=== PATIENT | female | born 1970 | race Caucasian/White ===

== ENCOUNTER → 2023-04-30 | Outpatient (CLI) | payer BC, SELFPAY ==
--- NOTE | 2023-04-30 14:51 | RAD_ITS ---
STUDY: X-RAY CHEST REASON FOR EXAM: Female, 52 years old. COUGH TECHNIQUE: PA and lateral views of the chest. COMPARISON: None. FINDINGS: There is metallic density at the right mid chest. The lungs are clear and expanded. There is no demonstrated pleural abnormality. Normal size heart. Normal mediastinum and andrew. Normal visualized pulmonary arteries. Normal visualized aortic arch and descending thoracic aorta. Normal visualized thoracic spine. Normal visualized ribs, clavicles, and shoulders. There is no demonstrated abnormality of the visualized soft tissue structures of the upper abdomen. RAD/Chest PA and Lateral IMPRESSION: Normal x-ray examination of the chest. Electronically Signed: Moi Brothers MD at 15:20 EST ,
--- OUTSIDE RECORDS SUMMARY | 2023-04-30 15:05 | XMS RPT_ITS | CCD ---
Author Name Unknown Address [address] [place] [address] Organization [facility] Care Team Providers Care Warehouse Guard Name Role Phone Maryellen De Leon MD Primary Care Provider [phone] MARYELLEN DE LEON Primary Care Unavailable MARYELLEN DE LEON Primary Care Unavailable CARITO REDDY Referring Unavailable MARYELLEN DE LEON Primary Care Unavailable CARITO REDDY Attending Unavailable MARYELLEN DE LEON Primary Care Unavailable Medications Current Medications Medication Drug Class(es) Dates Sig (Normalized) Sig (Original) amoxicillin 875 mg / clavulanate 125 mg oral tablet (1 source) Penicillin-class Antibacterial Start: 05-18-2022 End: 05-23-2022 take 1 tablet by mouth twice daily amoxicillin-clav ulanic acid (AUGMENTIN) 875-125 mg per tablet Take 1 tablet by mouth twice daily for 5 days. 10 tablet 0 05/18/2022 05/23/2022 Active Completed/Discontinued Medications Medication Drug Class(es) Dates Sig (Normalized) Sig (Original) escitalopram 5 mg oral tablet (9 sources) Serotonin Reuptake Inhibitor Start: 05-13-2021 End: 06-16-2022 take 1 tablet by mouth once daily escitalopram oxalate (LEXAPRO) 5 mg tablet Indications: Depression with anxiety Take 1 tablet by mouth once daily. 90 tablet 3 06/16/2022 Active Problems Active Problems Problem Classification Problem Date Documented Da te Episodic/Chronic Anxiety disorders (9 sources) Mixed anxiety and depressive disorder; Translations: [Other specified anxiety disorders] Onset: 03-29-2018 03-29-2018 Chronic Headache; including migraine (8 sources) Migraine without aura, not refractory ; Translations: [Migraine without aura, not intractable, without status migrainosus] Onset: 03-29-2018 03-29-2018 Chronic Nutritional deficiencies (1 source) Vitamin D deficiency; Translations: [Vitamin D deficiency, unspecified] Chronic Other nervous system disorders (8 sources) Bilateral carpal tunnel syndrome; Translations: [Carpal tunnel syndrome, bilateral upper limbs] Onset: 09-02-2020 09-02-2020 Chronic Other screening for suspected conditions (not mental disorders or infectious disease) (1 source) Cancer cervix screening status; Translations: [Encounter for screening for malignant neoplasm of cervix] Episodic Other upper respiratory infections (2 sources) Acute sinusitis; Translations: [Acute sinusitis, unspecified] Episodic Past or Other Problems Problem Classification Problem Date Documented Date Episodic/Chronic Allergic reactions (8 sources) Environmental allergy; Translations: [Other allergy status, other than to drugs and biological substances] Onset: 03-29-2018 03-29-2018 Episodic Cardiac dysrhythmias (8 sources) Palpitations; Translations: [Palpitations] Onset: 06-09-2005 03-29-2018 Episodic Immunizations and screening for infectious disease (15 sources) Patient encounter status; Translations: [Encounter for screening for human papillomavirus (HPV)] Onset: 03-29-2018 Episodic Nonmalignant breast conditions (8 sources) Breast lump; Translations: [Unspecified lump in unspecified breast] Onset: 07-01-2012 07-01-2012 Episodic Other and unspecified benign neoplasm (8 sources) History of polyp of colon; Translations: [Personal history of colonic polyps] Onset: 05-13-2021 05-13-2021 Episodic Screening and history of mental health and substance abuse codes (8 sources) Ex-smoker; Translations: [Personal history of nicotine dependence] Onset: 03-29-2018 03-29-2018 Episodic Spondylosis; intervertebral disc disorders; other back problems (2 sources) Musculoskeletal disorder of the neck; Translations: [Other specified dorsopathies, cervical region] Onset: 05-11-2022 Episodic Results Test Name Value Interpretation Reference Range Facil ity Vital Signs Date Time Vital Sign Value Performing Clinician Kelsea san 05-18-2022 09:02-0500 Body temperature 97.5 [degF] Nirali PEREZ Work Phone: [facility] 05-18-2022 09:02-0500 Body weight 52.98 kg Krislyn Aberegg PA Work Phone: [facility] 05-18-2022 09:02-0500 Diastolic blood pressure 70 mm[Hg] Krislyn Aberegg PA Work Phone: [facility] 05-18-2022 09:02-0500 Heart rate 94 /min Krislyn Aberegg PA Work Phone: [facility] 05-18-2022 09:02-0500 Respiratory rate 21 /min Krislyn Aberegg PA Work Phone: [facility] 05-18-2022 09:02-0500 SaO2% (BldA) [Mass fraction] 98 % Krislyn Aberegg PA Work Phone: [facility] 05-18-2022 09:02-0500 Systolic blood pressure 112 mm[Hg] Krislyn Aberegg PA Work Phone: [facility] 05-11-2022 14:13-0500 Body weight 52.16 kg Carito Reddy PLANE CAPTAIN.FOLDING MACHINE OPERATOR Work Phone: [facility] 05-11-2022 14:13-0500 Diastolic blood pressure 70 mm[Hg] Carito Reddy PLANE CAPTAIN.FOLDING MACHINE OPERATOR Work Phone: [facility] 05-11-2022 14:13-0500 Heart rate 74 /min Carito Reddy PLANE CAPTAIN.FOLDING MACHINE OPERATOR Work Phone: [facility] 05-11-2022 14:13-0500 Respiratory rate 12 /min Carito Reddy PLANE CAPTAIN.FOLDING MACHINE OPERATOR Work Phone: [facility] 05-11-2022 14:13-0500 Systolic blood pressure 110 mm[Hg] Caritojohnathon Reddy PLANE CAPTAIN.FOLDING MACHINE OPERATOR Work Phone: [facility] 03-02-2022 07:08-0500 Body temperature 98.4 [degF] Dani Asher MD Work Phone: [facility] 03-02-2022 07:08-0500 Body weight 52.16 kg Dani Asher MD Work Phone: [facility] 03-02-2022 07:08-0500 Diastolic blood pressure 70 mm[Hg] Dani Asher MD Work Phone: [facility] 03-02-2022 07:08-0500 Heart rate 76 /min Dani Asher MD Work Phone: [facility] 03-02-2022 07:08-0500 Respiratory rate 16 /min Dani Asher MD Work Phone: [facility] 03-02-2022 07:08-0500 SaO2% (BldA) [Mass fraction] 99 % Dani Asher MD Work Phone: [facility] 03-02-2022 07:08-0500 Systolic blood pressure 122 mm[Hg] Dani Asher MD Work Phone: [facility] 08-12-2021 09:26-0400 Body height 159 cm Juliet Blanchard MD Work Phone: [facility] 08-12-2021 09:26-0400 Body weight 52.16 kg Juliet Blanchard MD Work Phone: [facility] 08-12-2021 09:26-0400 Diastolic blood pressure 62 mm[Hg] Juliet Blanchard MD Work Phone: [facility] 08-12-2021 09:26-0400 Systolic blood pressure 110 mm[Hg] Juliet Blanchard MD Work Phone: [facility] Encounters Encounter Date Encounter Type Care Provider Facility Start: 04-22-2023 End: 04-22-2023 ambulatory MARYELLEN DE LEON Facility:[facility] Start: 06-29-2022 Telephone encounter Lois LUCAS Radiology Procedures Date Procedure Procedure Detail Performing Clinician Start: 03-29-2015 Colonoscopy Juliet Blanchard MD Work Phone: Start: 01-07-2012 Mammography Juliet Blanchard MD Work Phone: Plan of Treatment Date Care Activity Detail Author Start: 05-04-2029 Urine microalbumin profile DTA P,TDAP,TD (3 - Td or Tdap) [facility] Start: 08-12-2026 HPV TESTING HPV TESTING [facility] Start: 08-12-2026 LIPID SCREEN LIPID SCREEN [facility] Start: 08-12-2026 PAP TESTING PAP TESTING [facility] Start: 02-21-2025 LIPID SCREEN LIPID SCREEN [facility] Start: 08-12-2024 DIABETES SCREEN DIABETES SCREEN [facility] Start: 12-25-2022 Influenza vaccination INFLUENZA (#1) [facility] Start: 05-13-2022 COVID-19 VACCINE (#1) COVID-19 VACCI NE (#1) [facility] Immunizations Immunization Date Immunization Notes Care Provider Mateo sanabria 05-04-2019 tetanus toxoid, redu sim diphtheria toxoid, and acellular pertussis vaccine, adsorbed Juliet Blanchard MD Work Phone: [facility] 01-07-2018 influenza, injectabl e, quadrivalent, contains preservative Juliet Blanchard MD Work Phone: [facility] 09-08-1995 diphtheria and tetan us toxoids, adsorbed for pediatric use Juliet Blanchard MD Work Phone: [facility] Work Phone: Payers Date Payer Category Payer Unknown [employer] PPO [id number] 2021-Present [phone] [address] [place] [address] PPO [id number] 2021 Unknown [employer] PPO [id number] 2021-Present [phone] [id number] [place] [address] PPO [id number] 2021 Unknown [id number] Social History Date Type Detail Facility Start: 05-24-2015 End: 03-02-2022 Tobacco smoking status NHIS Ex-smoker [facility] End: 03-01-2006 History of tobacco use Current smoker [facility] Work Phone: End: 03-01-2006 History of tobacco use Cigarette Smoker [facility] Work Phone: Start: 08-12-2021 End: 05-18-2022 Alcohol intake Current drinker of alcohol (finding) [facility] Start: 11-11-2020 End: 05-11-2022 History SDOH Alcohol Frequency 2 [facility] Start: 11-11-2020 End: 05-11-2022 History SDOH Alcohol Std Drinks 1 [facility] Start: 05-24-2015 History SDOH Alcohol Comment Very Rarely [facility] Start: 11-11-2020 History SDOH Social Connections Taoism 98 [facility] Start: 11-11-2020 End: 05-11-2022 History SDOH Physical Activity DPW 7 [facility] Start: 11-11-2020 History SDOH Physical Activity MPS 6 [facility] Start: 11-11-2020 End: 05-11-2022 History SDOH Financial 5 [facility] Start: 11-11-2020 Education 12 [facility] Start: 1970 Sex Assigned At Female [facility] Start: 07-18-2021 End: 03-02-2022 Exposure to SARS-CoV-2 (event) Not sure [facility] Start: 05-24-2015 End: 05-11-2022 Cigarettes smoked current (pack per day) - Reported 1 [facility] Start: 05-24-2015 End: 03-02-2022 Tobacco use and exposure Smokeless tobacco non-user [facility] Work Phone: Start: 05-11-2022 History SDOH Social Connections Phone 4 [facility] Start: 05-11-2022 History SDOH Social Connections Living 8 [facility] Start: 05-11-2022 History SDOH Physical Activity MPS 3 [facility] Start: 11-11-2020 End: 05-11-2022 Social connection and isolation panel [facility] Do you belong to any clubs or organizations such as mormon groups, unions, fraternal or athletic groups, or school groups? No [facility] Are you now , , , , never or living with a partner? Living with partner [facility] How often to you hav e a drink containing alcohol? Monthly or less [facility] How many standard dr inks containing alcohol do you have on a typical day? 1 or 2 [facility] How often do you hav e 6 or more drinks on 1 occasion? Never [facility] How hard is it for y ou to pay for the very basics like food, housing, medical care, and heating Not hard at all [facility] Do you feel stress - tense, restless, nervous, or anxious, or unable to sleep at night because your mind is troubled all the time - these days [OSQ] Only a little [facility] (I/We) worried wheth er (my/our) food would run out before (I/we) got money to buy more. Never true [facility] Start: 03-30-2019 Gender identity Identifies as female gender (finding) [facility] Start: 03-30-2019 Sexual orientation Heterosexual (finding) [facility] Clinical Notes 06-17-2012 to 04-22-2023 Telephone Encounter - Lois Hand PSS - 06/29/2022 1:59 PM ESTTelephone Encounter - Patti Colunga - 06/29/2022 9:56 AM ESTTelephone Encounter - Freda Lowe RN - 06/16/2022 9:17 AM EST Note Date & Type Note Facility 04-22-2023 Note HNO ID: [id number] Author: Michael Del Toro APRN.FOLDING MACHINE OPERATOR Service: ? Author Type: Nurse Practitioner Type: Progress Notes Filed: 04/22/2023 8:28 AM Note Text: Subjective HPI HPI Gretta Sims is a 52 year old female who presents today for CC of cough, congestion, ear pain. This started 3 weeks ago. Has tried otc medication for relief. Symptoms are worsened by nothing. Risk factors sick exposures at work. .Patient presents with: Cough: Chest congestion, headache, R ear pain, chest burning x 3 weeks PAST MEDICAL HISTORY Diagnosis Date Carpal tunnel syndrome, bilateral 09/02/2020 Seeing [facility]. Depression with anxiety 03/29/2018 Environmental allergies 03/29/2018 Ex-smoker 03/29/2018 Started at age 17 up to 1.5 PPD and quit at age 35 Migraine without aura and without status migrainosus, not intractable 03/29/2018 Mitral valve disorders(424.0) prolapse Palpitations 06/09/2005 since 1993 PMH - PAST MEDICAL HISTORY OF January 2007 HPV DNA Assay Positive Well adult exam 03/29/2018 last done: 03/29/2018 PAST SURGICAL HISTORY Procedure Laterality Date BX BREAST PERC NEED W/GUID 07/13/2012 U/S needle core bx UOQ right breast CARPAL TUNNEL Right 03/27/2021 COLONOSCOPY 04/26/2014 LAPAROSCOPY DIAGNOSTIC 11/25/2015 dilated ascending right colon, bilateral salpingectomy REVISE MEDIAN N/CARPAL TUNNEL SURG Left 02/2021 ALLERGIES Patient has no known allergies. MEDICATIONS escitalopram oxalate (LEXAPRO) 5 mg tablet Take 1 tablet by mouth once daily. FAMILY HISTORY Problem Relation Age of Onset Hyperlipidemia Mother other (bilateral fem bypass) Mother Prostate Cancer Father 72 other (migraines) Father Hypertension Maternal Grandmother Alzheimer's Disease Maternal Grandmother Coronary Artery Disease Maternal Grandmother early 70's Stroke Maternal Grandmother Colon Cancer No Family History Breast Cancer No Family History Ovarian cancer No Family History Uterine Cancer No Family History Diabetes No Family History Kidney Disease No Family History Seizures No Family History Thyroid No Family History Social History Tobacco Use Smoking status: Former Packs/day: 1.00 Years: 15.00 Additional pack years: 0.00 Total pack years: 15.00 Types: Cigarettes Quit date: 03/01/2006 Years since quittin.1 Smokeless tobacco: Never Vaping Use Vaping Use: Never used Substance Use Topics Alcohol use: Yes Comment: Very Rarely Drug use: No Review of Systems Constitutional: Negative for fever. HENT: Positive for congestion and sinus pain. Negative for ear pain, nosebleeds and sore throat. Respiratory: Positive for cough. Negative for shortness of breath and wheezing. Gastrointestinal: Negative for diarrhea and vomiting. Musculoskeletal: Negative for neck pain. Skin: Negative for itching and rash. Objective Blood pressure 136/85, pulse 71, temperature 36.3 ?C (97.3 ?F), resp. rate 18, weight 52.6 kg (116 lb), last menstrual period 04/29/2015, SpO2 100%. Physical Exam Constitutional: General: She is not in acute distress. Appearance: She is not toxic-appearing or diaphoretic. HENT: Head: Normocephalic and atraumatic. Right Ear: Hearing, tympanic membrane, ear canal and external ear normal. Left Ear: Hearing, tympanic membrane, ear canal and external ear normal. Nose: Nose normal. Mouth/Throat: Pharynx: Uvula midline. No pharyngeal swelling, oropharyngeal exudate, posterior oropharyngeal erythema or uvula swelling. Eyes: General: Lids are normal. No scleral icterus. Right eye: No discharge. Left eye: No discharge. Conjunctiva/sclera: Conjunctivae normal. Pupils: Pupils are equal, round, and reactive to light. Neck: Trachea: Trachea normal. Cardiovascular: Rate and Rhythm: Normal rate and regular rhythm. Heart sounds: Normal heart sounds. Pulmonary: Effort: Pulmonary effort is normal. Breath sounds: Normal breath sounds. Musculoskeletal: Cervical back: Normal range of motion and neck supple. Lymphadenopathy: Cervical: No cervical adenopathy. Right cervical: No superficial cervical adenopathy. Left cervical: No superficial cervical adenopathy. Skin: Findings: No rash. Neurological: Mental Status: She is alert and oriented to person, place, and time. ASSESSMENT/PLAN: 1. Sinobronchitis - ICD9: 473.9, 490, ICD10: J32.9, J40 - Will begin treatment with as per antibiotic as written, see orders - Supportive care with plenty of fluids, rest, and analgesia prn. - Follow up in 3-5 days if symptoms persist or worsen. - DOXYCYCLINE HYCLATE 100 MG TABLET - PREDNISONE 20 MG TABLET Michael Del Toro APRN.[facility] 07-22-2022 Note Patient Outreach (IN [facility]) GRETTA SIMS ([id number]) 1970 F Date Time Provider Department 07/22/22 MARYELLEN DE LEON During your visit today, we recorded the following information about you: Allergies As of Date: 07/22/2022 (No Known Allergies) Date Reviewed: 05/18/2022 Reviewed by: Marychuy Elaine MA - Fully Assessed Visit Diagnosis:Encounter for screening mammogram for breast cancer [Z12.31] Order(s):[facility] SCREENING [[id number]] Order #: [id number] FUTURE Prescriptions as of 07/27/2022 - escitalopram oxalate (LEXAPRO) 5 mg tablet Take 1 tablet by mouth once daily. Problem List As Of Date 07/22/2022 Noted Resolved Palpitations [R00.2] 06/09/2005 Other symptoms involving cardiovascular system *07/30/2005 01/29/2016 Breast lump [N63.0] 06/17/2012 05/02/2014 Lump or mass in breast [N63.0] 07/01/2012 Depression with anxiety [F41.8] 03/29/2018 Environmental allergies [Z91.09] 03/29/2018 Encounter for gynecological examination [Z01.41*03/29/2018 Ex-smoker [Z87.891] 03/29/2018 Well adult exam [Z00.00] 03/29/2018 Encounter for screening for diabetes mellitus [*03/29/2018 Migraine without aura and without status migrai*03/29/2018 Carpal tunnel syndrome, bilateral [G56.03] 09/02/2020 History of colonic polyps [Z86.010] 05/13/2021 Encounter Status:Closed by AZALIA CORRAL on 07/27/22 [place] 06-29-2022 Miscellaneous Notes CD READY FOR TRENCH DIGGER HELPER AT [facility] Pt notified Patient is requesting CD/report of cervical x-rays performed on 05/11/22. She has an appointment with a specialist on 07/02/22. Please notify the patient when ready for pick up attendant. Thank you. documented in this encounter [facility] 06-16-2022 Miscellaneous Notes Patient has been identified by name and date of : Yes, Freda Lowe RN Date 06/16/2022 Time 9:17 am Patient phones for refill(s): Requested Prescriptions Pending Prescriptions Disp Refills escitalopram oxalate (LEXAPRO) 5 mg tablet 90 tablet 3 Sig: Take 1 tablet by mouth once daily. Date of last office visit with pcp: 05/11/2022 Future appt: none Last 2 Encounter Wt Readings: Date: Wt: 05/18/2022 53 kg (116 lb 12.8 oz) 05/11/2022 52.2 kg (115 lb) Previous labs/tests for medication: Blood Pressure: BUN (mg/dL) Date Value 08/12/2021 19 02/22/2020 16 Sodium (mmol/L) Date Value 08/12/2021 141 02/22/2020 141 Last 1 Encounter BP Readings: Date: BP: 05/18/2022 112/70 Liver Function: ALT (U/L) Date Value 03/26/2015 13 ALT (SGPT) (U/L) Date Value 09/21/2018 25 AST (U/L) Date Value 03/26/2015 28 AST (SGOT) (U/L) Date Value 09/21/2018 37 Please advise. Thank you. Freda Lowe RN documented in this encounter [facility] 05-18-2022 Note HNO ID: [id number] Author: CHRIS Ballesteros Service: ? Author Type: Physician Tip Out Worker Type: Progress Notes Filed: 05/18/2022 9:16 AM Note Text: This note was created using [employer]. Subjective Gretta Sims is a 51 year old female. HPI 51-year-old female presents for sinus congestion, sinus pressure and sinus headache. Patient states this has been going on for about 7 or 8 days now. States she has a history of sinus infections. No recent antibiotic use. She has a mild cough from postnasal drainage. She denies any sore throat. No chest pain or shortness of breath. No fevers. She does have sick contacts at work. She has not taken an at home COVID test. Review of Systems Constitutional: Negative for chills and fever. HENT: Positive for congestion, postnasal drip, sinus pressure and sinus pain. Negative for ear pain and sore throat. Respiratory: Positive for cough. Negative for shortness of breath. Cardiovascular: Negative for chest pain. Gastrointestinal: Negative for diarrhea and vomiting. Objective BP 112/70 Pulse 94 Temp 36.4 ?C (97.5 ?F) Resp 21 Wt 53 kg (116 lb 12.8 oz) LMP 04/29/2015 SpO2 98% BMI 20.96 kg/m? Physical Exam Vitals and nursing note reviewed. Constitutional: General: She is not in acute distress. Appearance: Normal appearance. She is not toxic-appearing. HENT: Right Ear: Tympanic membrane and ear canal normal. Left Ear: Tympanic membrane and ear canal normal. Nose: Congestion present. Right Sinus: Maxillary sinus tenderness present. Left Sinus: Maxillary sinus tenderness present. Mouth/Throat: Mouth: Mucous membranes are moist. Pharynx: No oropharyngeal exudate or posterior oropharyngeal erythema. Eyes: Conjunctiva/sclera: Conjunctivae normal. Cardiovascular: Rate and Rhythm: Normal rate and regular rhythm. Pulmonary: Effort: Pulmonary effort is normal. Breath sounds: Normal breath sounds. Neurological: Mental Status: She is alert. Assessment and Plan ASSESSMENT/PLAN: 1. Acute non-recurrent sinusitis, unspecified location - ICD9: 461.9, ICD10: J01.90 -Symptoms have been present for 7-8 days. - Will begin treatment with Augmentin 875 mg PO BID for 5 days - Supportive care with plenty of fluids, rest, and analgesia prn. -Offered COVID/flu swab, although would not change treatment plan. Patient declines. Diagnosis and treatment plan were discussed and questions were answered to the patient's satisfaction. Pt acknowledged understanding of concepts and follow up plan. Specific signs and symptoms that would indicate the need for higher level of care were discussed in detail warranting prompt ER evaluation. CHRIS Ballesteros [place] 05-18-2022 History of Presen t illness Narrative This note was created using NoteWriter. Subjective Gretta Sims is a 51 year old female. HPI 51-year-old female presents for sinus congestion, sinus pressure and sinus headache. Patient states this has been going on for about 7 or 8 days now. States she has a history of sinus infections. No recent antibiotic use. She has a mild cough from postnasal drainage. She denies any sore throat. No chest pain or shortness of breath. No fevers. She does have sick contacts at work. She has not taken an at home COVID test. Review of Systems Constitutional: Negative for chills and fever. HENT: Positive for congestion, postnasal drip, sinus pressure and sinus pain. Negative for ear pain and sore throat. Respiratory: Positive for cough. Negative for shortness of breath. Cardiovascular: Negative for chest pain. Gastrointestinal: Negative for diarrhea and vomiting. Objective BP 112/70 Pulse 94 Temp 36.4 C (97.5 F) Resp 21 Wt 53 kg (116 lb 12.8 oz) LMP 04/29/2015 SpO2 98% BMI 20.96 kg/m Physical Exam Vitals and nursing note reviewed. Constitutional: General: She is not in acute distress. Appearance: Normal appearance. She is not toxic-appearing. HENT: Right Ear: Tympanic membrane and ear canal normal. Left Ear: Tympanic membrane and ear canal normal. Nose: Congestion present. Right Sinus: Maxillary sinus tenderness present. Left Sinus: Maxillary sinus tenderness present. Mouth/Throat: Mouth: Mucous membranes are moist. Pharynx: No oropharyngeal exudate or posterior oropharyngeal erythema. Eyes: Conjunctiva/sclera: Conjunctivae normal. Cardiovascular: Rate and Rhythm: Normal rate and regular rhythm. Pulmonary: Effort: Pulmonary effort is normal. Breath sounds: Normal breath sounds. Neurological: Mental Status: She is alert. Assessment and Plan ASSESSMENT/PLAN: 1. Acute non-recurrent sinusitis, unspecified location - ICD9: 461.9, ICD10: J01.90 -Symptoms have been present for 7-8 days. - Will begin treatment with Augmentin 875 mg PO BID for 5 days - Supportive care with plenty of fluids, rest, and analgesia prn. -Offered COVID/flu swab, although would not change treatment plan. Patient declines. Diagnosis and treatment plan were discussed and questions were answered to the patient's satisfaction. Pt acknowledged understanding of concepts and follow up plan. Specific signs and symptoms that would indicate the need for higher level of care were discussed in detail warranting prompt ER evaluation. CHRIS Ballesteros documented in this encounter [facility] 05-14-2022 Miscellaneous Notes Unable to reach patient by phone mychart message sent Michelle Lynch Cma Left message for patient to return call to office Michelle Lynch Cma Please let patient know that xray shows mild degenerative changes of the cervical spine. documented in this encounter [facility] 05-11-2022 Note HNO ID: [id number] Author: RT Mona(R) Service: Radiology Author Type: Technologist Type: Progress Notes Filed: 05/11/2022 3:10 PM Note Text: Radiology Service Progress Note PATIENT NAME: Gretta Sims DATE OF SERVICE: May 11, 2022 TIME: 2:55 PM PATIENT IDENTITY VERIFICATION COMPLETED USING TWO (2) IDENTIFIERS: Name and Date of confirmed by patient verbally. FALL SCREENING: Has the patient had 2 falls in the last year or 1 fall with injury or currently using an Ambulatory Assistive Device (Walker, Cane, Wheelchair, Crutches, etc.)? No PATIENT GENDER DATA: Female. status: : No status: NO. PATIENT RELEVANT IMPLANT DATA REVIEWED: Yes RADIOLOGY DEPARTMENT: General X-ray: Exam(s) Completed: Spine X-Ray(s): Cervical AP / LAT / OBL PERIPHERAL IV DATA: Not applicable SIGNED BY: RT Mona(R) May 11, 2022 2:55 PM [place] 05-11-2022 Note HNO ID: [id number] Author: Carito Reddy APRN.CNP Service: ? Author Type: Nurse Practitioner Type: Progress Notes Filed: 05/11/2022 2:30 PM Note Text: Chief Complaint Patient presents with: Neck Pain HPI Gretta Sims is a 51 year old female who presents here today for Above Complaints.. Patient presents with left shoulder/neck pain. Patient states pain started in november 2021 and she thought originally it was a pulled muscle however she continues to have a shooting pain up the left side of her neck. Patient reports that the pain is constant but is worse when she is looking down reading. Patient reports taking ibuprofen with little improvement in pain. Past medical history, appointments, medications, allergies reviewed. Previous Medical History PAST MEDICAL HISTORY Diagnosis Date Carpal tunnel syndrome, bilateral 09/02/2020 Seeing [facility]. Depression with anxiety 03/29/2018 Environmental allergies 03/29/2018 Ex-smoker 03/29/2018 Started at age 17 up to 1.5 PPD and quit at age 35 Migraine without aura and without status migrainosus, not intractable 03/29/2018 Mitral valve disorders(424.0) prolapse Palpitations 06/09/2005 since 1993 PM - PAST MEDICAL HISTORY OF January 2007 HPV DNA Assay Positive Well adult exam 03/29/2018 last done: 03/29/2018 Previous Surgical History PAST SURGICAL HISTORY Procedure Laterality Date BX BREAST PERC NEED W/GUID 07/13/2012 U/S needle core bx UOQ right breast CARPAL TUNNEL Right 03/27/2021 COLONOSCOPY 04/26/2014 LAPAROSCOPY DIAGNOSTIC 11/25/2015 dilated ascending right colon, bilateral salpingectomy REVISE MEDIAN N/CARPAL TUNNEL SURG Left 02/2021 Family History FAMILY HISTORY Problem Relation Age of Onset Hyperlipidemia Mother other (bilateral fem bypass) Mother Prostate Cancer Father 72 other (migraines) Father Hypertension Maternal Grandmother Alzheimer's Disease Maternal Grandmother Coronary Artery Disease Maternal Grandmother early 70's Stroke Maternal Grandmother Colon Cancer No Family History Breast Cancer No Family History Ovarian cancer No Family History Uterine Cancer No Family History Diabetes No Family History Kidney Disease No Family History Seizures No Family History Thyroid No Family History Patient Allergies ALLERGIES No Known Allergies Current Medications Current Outpatient Medications on File Prior to Visit Medication Sig escitalopram oxalate (LEXAPRO) 5 mg tablet Take 1 tablet by mouth once daily. triamcinolone acetonide (NASACORT) 55 mcg nasal inhaler Use 2 Sprays in the nose once daily. No current facility-administered medications on file prior to visit. Social History Social History Tobacco Use Smoking status: Former Packs/day: 1.00 Years: 15.00 Pack years: 15.00 Types: Cigarettes Quit date: 03/01/2006 Years since quittin.2 Smokeless tobacco: Never Vaping Use Vaping Use: Never used Substance Use Topics Alcohol use: Yes Comment: Very Rarely Drug use: No Review of Symptoms REVIEW OF SYSTEMS SEE HPI EXAM: BP 110/70 Pulse 74 Resp 12 Wt 52.2 kg (115 lb) LMP 04/29/2015 BMI 20.63 kg/m? General Appearance: Well appearing, alert, in no acute distress, well-hydrated, well nourished.. Musculoskeletal: Positive findings: pain with palpation of the space between the top of the scapula and clavicle.,distal to the curvature of the neck. Pain reproducible with front and lateral raising of the left arm. Health Maintenance List HEPATITIS B(1 of 3 - 3-dose series) Never done HEPATITIS C SCREENING Never done MAMMOGRAM due on 01/06/2013 COLORECTAL CANCER SCREENING due on 03/29/2020 SHINGRIX VACCINE(1 of 2) Never done INFLUENZA(1) due on 12/25/2021 COVID-19 VACCINE(1) due on 05/13/2022 DIABETES SCREEN due on 08/12/2024 LIPID SCREEN due on 08/12/2026 PAP TESTING due on 08/12/2026 HPV TESTING due on 08/12/2026 DTAP,TDAP,TD(3 - Td or Tdap) due on 05/04/2029 HIV SCREENING Discontinued ASSESSMENT/PLAN: 1. Musculoskeletal disorder of neck - ICD9: 723.9, ICD10: M53.82 - CONSULT TO MASSAGE THERAPY - XR CERV OTHER 4V AP/LAT/OBL - Apply heat to area as needed, continue ibuprofen as needed for pain and inflammation. Carito Reddy APRN.CNP [place] 05-11-2022 Instructions Carito Rdedy APRN.CNP - 05/11/2022 2:28 PM EST Consult massage therapy Complete xray 3. Follow up as needed documented in this encounter [facility] 05-11-2022 History of Presen t illness Narrative Chief Complaint Patient presents with: Neck Pain HPI Gretta Sims is a 51 year old female who presents here today for Above Complaints.. Patient presents with left shoulder/neck pain. Patient states pain started in november 2021 and she thought originally it was a pulled muscle however she continues to have a shooting pain up the left side of her neck. Patient reports that the pain is constant but is worse when she is looking down reading. Patient reports taking ibuprofen with little improvement in pain. Past medical history, appointments, medications, allergies reviewed. Previous Medical History PAST MEDICAL HISTORY Diagnosis Date Carpal tunnel syndrome, bilateral 09/02/2020 Seeing [facility]. Depression with anxiety 03/29/2018 Environmental allergies 03/29/2018 Ex-smoker 03/29/2018 Started at age 17 up to 1.5 PPD and quit at age 35 Migraine without aura and without status migrainosus, not intractable 03/29/2018 Mitral valve disorders(424.0) prolapse Palpitations 06/09/2005 since 1993 PMH - PAST MEDICAL HISTORY OF January 2007 HPV DNA Assay Positive Well adult exam 03/29/2018 last done: 03/29/2018 Previous Surgical History PAST SURGICAL HISTORY Procedure Laterality Date BX BREAST PERC NEED W/GUID 07/13/2012 U/S needle core bx UOQ right breast CARPAL TUNNEL Right 03/27/2021 COLONOSCOPY 04/26/2014 LAPAROSCOPY DIAGNOSTIC 11/25/2015 dilated ascending right colon, bilateral salpingectomy REVISE MEDIAN N/CARPAL TUNNEL SURG Left 02/2021 Family History FAMILY HISTORY Problem Relation Age of Onset Hyperlipidemia Mother other (bilateral fem bypass) Mother Prostate Cancer Father 72 other (migraines) Father Hypertension Maternal Grandmother Alzheimer's Disease Maternal Grandmother Coronary Artery Disease Maternal Grandmother early 70's Stroke Maternal Grandmother Colon Cancer No Family History Breast Cancer No Family History Ovarian cancer No Family History Uterine Cancer No Family History Diabetes No Family History Kidney Disease No Family History Seizures No Family History Thyroid No Family History Patient Allergies ALLERGIES No Known Allergies Current Medications Current Outpatient Medications on File Prior to Visit Medication Sig escitalopram oxalate (LEXAPRO) 5 mg tablet Take 1 tablet by mouth once daily. triamcinolone acetonide (NASACORT) 55 mcg nasal inhaler Use 2 Sprays in the nose once daily. No current facility-administered medications on file prior to visit. Social History Social History Tobacco Use Smoking status: Former Packs/day: 1.00 Years: 15.00 Pack years: 15.00 Types: Cigarettes Quit date: 03/01/2006 Years since quittin.2 Smokeless tobacco: Never Vaping Use Vaping Use: Never used Substance Use Topics Alcohol use: Yes Comment: Very Rarely Drug use: No Review of Symptoms REVIEW OF SYSTEMS SEE HPI EXAM: BP 110/70 Pulse 74 Resp 12 Wt 52.2 kg (115 lb) LMP 04/29/2015 BMI 20.63 kg/m General Appearance: Well appearing, alert, in no acute distress, well-hydrated, well nourished.. Musculoskeletal: Positive findings: pain with palpation of the space between the top of the scapula and clavicle.,distal to the curvature of the neck. Pain reproducible with front and lateral raising of the left arm. Health Maintenance List HEPATITIS B(1 of 3 - 3-dose series) Never done HEPATITIS C SCREENING Never done MAMMOGRAM due on 01/06/2013 COLORECTAL CANCER SCREENING due on 03/29/2020 SHINGRIX VACCINE(1 of 2) Never done INFLUENZA(1) due on 12/25/2021 COVID-19 VACCINE(1) due on 05/13/2022 DIABETES SCREEN due on 08/12/2024 LIPID SCREEN due on 08/12/2026 PAP TESTING due on 08/12/2026 HPV TESTING due on 08/12/2026 DTAP,TDAP,TD(3 - Td or Tdap) due on 05/04/2029 HIV SCREENING Discontinued ASSESSMENT/PLAN: 1. Musculoskeletal disorder of neck - ICD9: 723.9, ICD10: M53.82 - CONSULT TO MASSAGE THERAPY - XR CERV OTHER 4V AP/LAT/OBL - Apply heat to area as needed, continue ibuprofen as needed for pain and inflammation. Carito Reddy APRN.MILY documented in this encounter [facility] 03-02-2022 History of Presen t illness Narrative Patient presents with: Sinus Problem: headaches, cough x 10 days HPI: Feeling sick for 10 days and not improving. Cough was worse last night. Positive symptoms: Cough, Sinus pressure, Headache, Nasal Congestion, Rhinorrhea, Post nasal drainage, hoarse voice, some ear pressure Negative symptoms: Shortness of breath, Wheezing, Fever, Chills, Nausea, Vomiting, Diarrhea, Malaise, OTC: Mucinex, lozenges. Had COVID illness 1 year ago. No COVID test this illness. No history of seasonal allergies. MEDICATIONS: Current Outpatient Medications Medication Sig escitalopram oxalate (LEXAPRO) 5 mg tablet Take 1 tablet by mouth once daily. triamcinolone acetonide (NASACORT) 55 mcg nasal inhaler Use 2 Sprays in the nose once daily. No current facility-administered medications for this visit. ALLERGIES: ALLERGIES No Known Allergies VITALS: BP 122/70 Pulse 76 Temp 36.9 C (98.4 F) Resp 16 Wt 52.2 kg (115 lb) LMP 04/29/2015 SpO2 99% BMI 20.63 kg/m PHYSICAL EXAM: GEN: Pleasant, in no acute distress. HEENT: PERRL, EOMI, conjunctiva clear Ears: canals clear. TMs without erythema, bulge, or effusion Sinuses: non-tender frontal sinus, tender maxillary sinuses Throat: moist mucous membranes, no erythema, no exudate Neck: supple, no thyromegaly, no lymphadenopathy HEART: regular rate and rhythm, no murmurs LUNGS: clear to auscultation, no wheezes or crackles, no increased WOB ASSESSMENT/PLAN: 1. Acute non-recurrent sinusitis, unspecified location - ICD9: 461.9, ICD10: J01.90 - DOXYCYCLINE MONOHYDRATE 100 MG CAPSULE will cover secondary bacterial sinusitis and prior smoker bronchitis. - BENZONATATE 100 MG CAPSULE Dani Asher MD documented in this encounter [facility] 02-25-2022 Miscellaneous Notes Patient notified. She has not had mammogram done. Transferred to radiology PSS to schedule. Magaly Joel RN Has she had a recent mammogram as I do not see that on her chart. Will not start HRT without that. Also, HRT may not help too much with libido. Patient last seen for annual in July. States she tried taking the Estroven every day with minimal improvement. Hot flashes are better, but her low libido is her main concern. Has some pain with intercourse due to vaginal dryness. Agreeable to HRT as discussed. Mariaelena Barth RN documented in this encounter [facility] 08-12-2021 Instructions Juliet Blanchard MD - 08/12/2021 9:58 AM EDT Images from the original note were not included. Health Information For Patients and the Community How to Prepare for Your Colonoscopy Using Golytely, Nulytely, Trilyte or Colyte Preparations IMPORTANT - Please Read These Instructions at Least 2 Weeks Before Your Colonoscopy [place] Instructions: ?Your bowel must be empty so that your doctor can clearly view your colon. Follow all of the instructions in this handout EXACTLY as they are written. If you do NOT follow the directions for when to start drinking the bowel preparation (see next page), your colonoscopy WILL be cancelled. ?Do NOT eat any solid food the ENTIRE day before your colonoscopy. ?Buy your bowel preparation at least 5 days before your colonoscopy. ?Do NOT mix the solution until the day before your colonoscopy. Designated Gis Administrator on the Day of Your Exam A responsible family member or friend MUST come with you to your colonoscopy and REMAIN in the endoscopy area until you are discharged! You are NOT ALLOWED to drive, take a taxi or bus, or leave the Endoscopy Center ALONE. If you do not have a responsible cement mixer driver (family member or friend) with you to take you home, your exam cannot be done with sedation and will be cancelled. Medications Some of the medicines you take may need to be stopped or adjusted before your colonoscopy. You MUST call the doctor who ordered any of the following medicines at least 2 weeks before your colonoscopy. ?Blood thinners -- such as Coumadin (warfarin), Plavix (clopidogrel), Ticlid (ticlopidine hydrochloride), Agrylin (anagrelide), Xarelto (Rivaroxaban), Pradaxa (Dabigatran), Eliquis (Apixaban), and Effient (Prasugrel). ?Insulin or diabetes pills. Please call the doctor that monitors your glucose levels. Your insulin dosage may need to be adjusted due to the diet restrictions required with this bowel preparation. (Please bring your diabetes medicines with you on the day of your procedure.) If you take aspirin, take it and ALL other medications prescribed by your doctor. On the day of your colonoscopy, take your medications with a sip of water. Revised 05/2016 1 Five (5) Days Before Your Colonoscopy ?Do NOT take medicines that stop diarrhea -- such as Imodium , Kaopectate , or Pepto Bismol . ?Do NOT take fiber supplements -- such as Metamucil , Citrucel , or Perdiem . ?Do NOT take products that contain iron -- such as multi-vitamins -- (the label lists what is in the products). ?Do NOT take vitamin E. Buy the prescription bowel preparation solution at your local pharmacy or drugstore pharmacy. Three (3) Days Before Your Colonoscopy Do NOT eat high-fiber foods -- such as popcorn, beans, seeds (flax, sunflower, quinoa), multigrain bread, nuts, salad/vegetables, or fresh and dried fruit. One (1) Day Before Your Colonoscopy Only drink clear liquids the ENTIRE DAY before your colonoscopy. Do NOT eat any solid foods. Drink at least 8 ounces of clear liquids every hour after waking up. The clear liquids you can drink include: ?water, apple, or white grape juice; broth; coffee or tea (without milk or creamer); clear carbonated beverages such as radha momo or lemon-ouzinkie soda; Gatorade or other sports drinks (not red); Tono-Aid or other flavored drinks (not red). You may eat plain jello or other gelatins (not red) or popsicles (not red). Do NOT drink alcohol on the day before or the day of the procedure. 2 Revised 05/2016 When to Mix and Drink Your Bowel Prep Follow the instructions on the label. After mixing, place the solution in the refrigerator for a couple of hours before drinking. You may add the flavor packet that came with the bowel preparation. DO NOT add ice, sugar or any flavorings to the solution. Evening Before Your Colonoscopy ?Start drinking the bowel preparation at 6 PM the evening before your colonoscopy. Drink an 8-oz glass of bowel preparation every 10 minutes. You must finish drinking the solution by 9 PM the night before your scheduled procedure. ?You may continue to drink clear liquids only until midnight. Do NOT eat or drink ANYTHING after midnight the night before your procedure or your procedure may be cancelled. This is for your safety and will reduce the risk of having any food or liquid in your stomach move into your lungs (aspiration) during a procedure. If you take aspirin, take it and ALL other prescribed medicines with a sip of water on the day of your colonoscopy. Contact Information: If you are unable to keep your appointment or have any questions about the instructions, please call the facility where the procedure is being performed. Call between the hours of 8:00 AM and 5:00 PM. If you are calling after 5:00 PM, please call Nurse information services assistant at [phone]. [facility] [address] [address] Index # [id number] Revised 05/2016 3 Colonoscopy Procedure Overview Please Read Prior to the Procedure What is a Colonoscopy A colonoscopy is an outpatient procedure in which the inside of the large intestine (colon and rectum) is examined. A colonoscopy is commonly used to evaluate gastrointestinal symptoms, such as rectal and intestinal bleeding, abdominal pain, or changes in bowel habits. Colonoscopies are also performed in individuals without symptoms to check for colorectal polyps or cancer. A screening colonoscopy is recommended for anyone 50 years of age and older, and for anyone with parents, siblings or children with a history of colorectal cancer or polyps. What Happens Before a Colonoscopy To have a successful colonoscopy, your bowel must be empty so that your physician can clearly view the colon. To do this, it is very important to read and follow all of the instructions given to you at least 2 weeks BEFORE your exam. If your bowel is not empty, your colonoscopy will not be successful and may have to be repeated. If you feel nauseated or vomit while taking the bowel preparation, wait 30 minutes before drinking more fluid and start with small sips of solution. Some activity (such as walking) or a few soda crackers may help decrease the nausea you are feeling. If the nausea persists, please contact nurse personal lines insurance agent at [phone]. You may experience skin irritation around the anus due to the passage of liquid stools. To prevent and treat skin irritation, you should: ?Apply Vaseline or Desitin ointment to the skin around the anus before drinking the bowel preparation medications. These products can be purchased at any drugstore. ?Wipe the skin after each bowel movement with disposable wet wipes instead of toilet paper. These are found in the toilet paper area of the store. ?Sit in a bathtub filled with warm water for 10 to 15 minutes after you finish passing a stool; after soaking, blot the skin dry with a soft cloth, apply Vaseline or Desitin ointment to the anal area, and place a cotton ball just outside your anus to absorb leaking fluid. What Happens During a Colonoscopy During a colonoscopy, an experienced physician uses a colonoscope (a long, flexible instrument about 1/2 inch in diameter) to view the lining of the colon. The colonoscope is inserted into the rectum and advanced through the large intestine. If necessary during a colonoscopy, small amounts of tissue can be removed for analysis (a biopsy) and polyps can be identified and entirely removed. In many cases, a colonoscopy allows accurate diagnosis and treatment of colorectal problems without the need for a major operation. Revised 05/2016 5 ?You are asked to wear a hospital gown and an IV will be started. ?You are given a pain reliever and a sedative intravenously (in your vein). You will feel relaxed and somewhat drowsy. ?You will lie on your left side, with your knees drawn up towards your chest. ?A small amount of air is used to expand the colon so the physician can see the colon arenas. ?You may feel mild cramping during the procedure. Cramping can be reduced by taking slow, deep breaths. ?The colonoscope is slowly withdrawn while the lining of your bowel is carefully examined. ?The procedure lasts from 30 minutes to 1 hour. What Happens After a Colonoscopy ?You will stay in a recovery room for observation until you are ready for discharge. ?You may feel some cramping or a sensation of having gas, but this quickly passes. ?If sedation has been given, a responsible family member or friend must drive you home. ?Avoid alcohol, driving, and operating machinery for 24 hours following the procedure. ?Unless otherwise instructed, you may immediately return to your normal diet. We recommend you wait until the day after your procedure to resume normal activities. ?If polyps were removed or a biopsy was taken, the physician performing your colonoscopy will tell you when it is safe to resume taking your blood thinners. ?If a biopsy was taken or a polyp was removed, you may notice a little amount of rectal bleeding for 1 to 2 days after the procedure. If you have a large amount of rectal bleeding, high or persistent fevers, or severe abdominal pain within the next 2 weeks, please go to your local emergency room and call the physician who performed your exam. 6 Revised 05/2016 Copyright 7257-0825 The [facility]. All rights reserved. Revised 05/2016 Miralax/Dulcolax Bowel Prep For this bowel preparation, you will need to purchase the following medications at any pharmacy: Over the counter Miralax (generic name is polyethylene glycol) 8.3 oz or 238 grams Four (4) Dulcolax (generic name is Bisacodyl) tablets 3 days prior to your procedure, you need to be on a low fiber diet (Such as popcorn, beans, seeds, nuts, salad and raw vegetables, corn, fresh and dried fruit and multi-grain bread) YOU MUST BE ON CLEAR LIQUIDS FOR 2 FULL DAYS PRIOR TO YOUR COLONOSCOPY Day one which would be two days before your colonoscopy, you will need to be on clear liquids all day. You may have coffee or tea-black only (no cream), clear broths (beef, chicken or vegetable), apple juice, white grape juice, pop, Gatorade, Powerade, lemonade, Jello, popsicles, Tono-aid, and water-But nothing red or dark purple in color and no dairy products, tomato or orange juices. Day two which would be the day before your colonoscopy continue clear liquids all day as above. And follow the instructions below: 8:00 AM - Mix the Miralax with 64 oz of Gatorade or another clear liquid of choice and place in refrigerator. Most people say the drink is better cold. 4:00 PM - Take 2 of the Dulcolax tablets with 8 oz of water. 6:00 PM - Start to drink the Miralax mixture. You must finish it by midnight. 8:00 PM - Take the other 2 Dulcolax tablets with 8 oz of water. You may continue to drink clear liquids while you are taking your prep and after you finish it as long as it is before midnight. Drink lots of fluids so you don t become dehydrated. Nothing to drink after midnight the night before the procedure unless you are instructed differently by the physician or nurses. Please remember to take your normal medications the morning of the procedure with a small sip of water especially your blood pressure medications. If you are diabetic, you need to contact your physician about how to take your diabetic medications and/or insulin during the prepping period and the day of your procedure. Any questions please call: Dr. Cooney or Dr. Johnson [phone] Cara Hernandez [phone] Dr. Pino [phone] [facility] nurses [phone] documented in this encounter [facility] 08-12-2021 History of Presen t illness Narrative Interpretive Naturalist offered: Patient declinesTae Lynch is a 51 year old who presents for an annual gynecologic exam with complaints, vaginal dryness, pain with intercourse and menopausal symptoms. Reports 5+ hot flashes every hour. Has not tried any supplements. 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 Postmenopausal: Yes since age 48 HRT use: No. Last Pap: 12/31/2011 normal HPV: 12/21/2011 negative History of abnormal pap: Yes Last mammogram: 2012 normal History of abnormal mammogram: No Sexually active: Yes History of STDS: None Patient concerns for STD exposure: No. Pain with intercourse: Yes Postcoital bleeding: No Hot flashes: Yes Night sweats: No Vaginal dryness: Yes Exercise: 7 times a week for 120 minutes. Type: Walking Diet: Balanced, chicken, vegetables, rice OB History T0 L0 SAB0 IAB0 Ectopic0 Multiple0 Live Births0 Puller Machine History LMP: 04/29/2015, Postmenopausal Age at Menarche: Age at First : Age at Menopause: Puller Machine History Comments: Sexual Activity: Yes; Male Contraception: No contraception data on record PAST MEDICAL HISTORY Diagnosis Date Carpal tunnel syndrome, bilateral 09/02/2020 Seeing [facility]. Depression with anxiety 03/29/2018 Environmental allergies 03/29/2018 Ex-smoker 03/29/2018 Started at age 17 up to 1.5 PPD and quit at age 35 Migraine without aura and without status migrainosus, not intractable 03/29/2018 Mitral valve disorders(424.0) prolapse Palpitations 06/09/2005 since 1993 PMH - PAST MEDICAL HISTORY OF January 2007 HPV DNA Assay Positive Well adult exam 03/29/2018 last done: 03/29/2018 PAST SURGICAL HISTORY Procedure Laterality Date BX BREAST PERC NEED W/GUID 07/13/2012 U/S needle core bx UOQ right breast CARPAL TUNNEL Right 03/27/2021 COLONOSCOPY 04/26/2014 LAPAROSCOPY DIAGNOSTIC 11/25/2015 dilated ascending right colon, bilateral salpingectomy REVISE MEDIAN N/CARPAL TUNNEL SURG Left 02/2021 FAMILY HISTORY Problem Relation Age of Onset Hyperlipidemia Mother other (bilateral fem bypass) Mother Prostate Cancer Father 72 other (migraines) Father Hypertension Maternal Grandmother Alzheimer's Disease Maternal Grandmother Coronary Artery Disease Maternal Grandmother early 70's Stroke Maternal Grandmother Colon Cancer No Family History Breast Cancer No Family History Ovarian cancer No Family History Uterine Cancer No Family History Diabetes No Family History Kidney Disease No Family History Seizures No Family History Thyroid No Family History SOCIAL HISTORY Social History Tobacco Use Smoking status: Former Smoker Packs/day: 1.00 Years: 15.00 Pack years: 15.00 Types: Cigarettes Quit date: 03/01/2006 Years since quittin.4 Smokeless tobacco: Never Used Vaping Use Vaping Use: Never used Substance Use Topics Alcohol use: Yes Comment: Very Rarely Drug use: No REVIEW OF SYSTEMS General: No fevers, chills, abnormal weight loss or gain Abdomen: No abdominal pain, nausea, vomiting, diarrhea, or constipation. No bloating, early satiety, indigestion, or increased flatulence. Bladder: Positive for increased frequency; No dysuria, gross hematuria, urinary urgency, or incontinence Breast: No breast lumps, nipple d/c, overlying skin changes, redness or skin retraction : Positive for vaginal dryness; No discharge, pruritis, lesions, abnormal uterine bleeding, pain Endocrine: Positive for hair loss, decreased libido, heat intolerance, xerosis Allergies and current medication updated:Yes EXAM: BP 110/62 Ht 5' 2.598 (1.59m) Wt 115 lb (52.2kg) LMP 04/29/2015 BMI 20.63 kg/(m^2). GENERAL: pleasant, female in no apparent distress HEENT: Normocephalic, atraumatic, mucus membranes moist and no lesions NECK: Supple, full range of motion, no adenopathy and thyroid normal DERMATOLOGY: Normal, without lesions, non-icteric and non-hirsute BREAST: soft, non-tender, symmetric, no dominant mass, normal nipple-areolar complex, no lymphadenopathy and no nipple discharge ABDOMEN: soft, non-tender and no masses PELVIC: external genitalia normal, normal Bartholin's glands, urethra, Rienzi's glands, no vulvar lesions, no cervical lesions, good vaginal support, physiologic discharge present, normal appearing perineal body and perianal region BIMANUAL: uterus normal size, shape and consistency, no adnexal masses and non-tender RECTOVAGINAL: deferred. NEURO: alert and oriented x3,exam grossly non-focal EXTREMITIES: normal ASSESSMENT/PLAN: 1) Health maintenance: Pap done with HPV. Mammogram ordered Nutrition, exercise and routine health maintenance exams reviewed. Calcium/Vitamin D supplementation information provided. Colon cancer screening: colonoscopy ordered Labs ordered 2) Follow up one year or sooner as needed 3) estroven or relizen reviewed- if fails will consider HRT therapy Juliet Stevens MD documented in this encounter [facility] documented as of this encounter (statuses as of 08/12/2021) [facility] History of Past illness Narrative* Problem Noted Date Resolved Date Breast lump 06/17/2012 05/02/2014 Other symptoms involving cardiovascular system 0 07/30/2005 01/29/2016 Overview: L carotid bruit 07/30 documented as of this encounter (statuses as of 02/25/2022) [facility] History of Past illness Narrative* Problem Noted Date Resolved Date Breast lump 06/17/2012 05/02/2014 Other symptoms involving cardiovascular system 0 07/30/2005 01/29/2016 Overview: L carotid bruit 4/06 documented as of this encounter (statuses as of 03/02/2022) [facility] History of Past illness Narrative* Problem Noted Date Resolved Date Breast lump 06/17/2012 05/02/2014 Other symptoms involving cardiovascular system 0 07/30/2005 01/29/2016 Overview: L carotid bruit 4/06 documented as of this encounter (statuses as of 05/11/2022) [facility] History of Past illness Narrative* Problem Noted Date Resolved Date Breast lump 06/17/2012 05/02/2014 Other symptoms involving cardiovascular system 0 07/30/2005 01/29/2016 Overview: L carotid bruit 4/06 documented as of this encounter (statuses as of 05/14/2022) [facility] History of Past illness Narrative* Problem Noted Date Resolved Date Breast lump 06/17/2012 05/02/2014 Other symptoms involving cardiovascular system 0 07/30/2005 01/29/2016 Overview: L carotid bruit 4/06 documented as of this encounter (statuses as of 05/18/2022) [facility] History of Past illness Narrative* Problem Noted Date Resolved Date Breast lump 06/17/2012 05/02/2014 Other symptoms involving cardiovascular system 0 07/30/2005 01/29/2016 Overview: L carotid bruit 4/06 documented as of this encounter (statuses as of 06/16/2022) [place] [id number] History of Past illness Narrative* Problem Noted Date Diagnosed Date Resolved Date Breast lump 06/17/2012 05/02/2014 Other symptoms involving car diovascular system 07/30/2005 01/29/2016 Overview: L carotid bruit 4/06 documented as of this encounter (statuses as of 12/09/2022) [facility] Diagnosis Encounter for gynecological examination (general) (routine) without abnormal findings- Primary Encounter for screening mammogram for malignant neoplasm of breast Other screening mammogram Screening for cervical cancer Screening for malignant neoplasm of the cervix Encounter for screening for human papillomavirus (HPV) Special screening examination for human papillomavirus (HPV) Special screening for malignant neoplasms, colon Vitamin D deficiency Unspecified vitamin D deficiency Screening cholesterol level Screening for lipoid disorders Screening for deficiency anemia Screening for other and unspecified deficiency anemia Encounter for screening for diabetes mellitus Screening for diabetes mellitus documented in this encounter [facility] note* Diagnosis Acute non-recurrent sinusitis, unspecified location- Primary documented in this encounter [facility] note* Diagnosis Musculoskeletal disorder of neck- Primary Unspecified musculoskeletal disorders and symptoms referable to neck documented in this encounter [facility] note* Diagnosis Acute non-recurrent sinusitis, unspecified location- Primary documented in this encounter [facility] note* Diagnosis Depression with anxiety Dysthymic disorder documented in this encounter [facility] for referral (narrative)* Outpatient Procedure (Routine) - Pending Review Specialty Diagnoses / Procedures Referred By Deepthi gonzalez Referred To Contact [facility] Diagnoses Special screening for malignant neoplasms, colon Procedures COLONOSCOPY SCREENING COLONOSCOPY FLX DX W/COLLJ SPEC WHEN PFRMD Juliet Jaeger MD [address] [place] [address] [facility] [address] [place] [address] Referral ID Status Reason Start Date Expiration Date Visits Requested Visits Authorized [id number] Pending Review Auto-Generat ed Referral 08/12/2021 08/12/2022 1 1 * Diagnostic Procedure Only (Routine) - Authorized Specialty Diagnoses / Procedures Referred By Deepthi gonzalez Referred To Contact [facility] Diagnoses Encounter for screening mammogram for malignant neoplasm of breast Procedures ROS SCREENING W ULISES SCREENING DIGITAL BREAST TOMOSYNTHESIS BI SCREENING MAMMOGRAPHY BI 2-VIEW BREAST INC CAD Juliet Jaeger MD [address] [address] [facility] [address] [place] [phone] Referral ID Status Reason Start Date Expiration Date Visits Requested Visits Authorized [id number] Authorized Auto-Generat ed Referral 08/12/2021 09/11/2022 1 1 [facility] Diagnostic Procedure Only (Routine) - Closed Specialty Diagnoses / Procedures Referred By Contac t Referred To Contact [facility] Diagnoses Musculoskeletal disorder of neck Procedures XR CERV OTHER 4V AP/LAT/OBL RADEX SPINE CERVICAL 4 OR 5 VIEWS Carito Reddy APRN.FOLDING MACHINE OPERATOR [address] [phone] [facility] Referral ID Status Reason Start Date Expiration Date V isits Requested Visits Authorized [id number] Closed Auto-Generate d Referral 05/11/2022 06/10/2023 1 1 * Consult, Test, Treat (Routine) - Pending Review Specialty Diagnoses / Procedures Referred By Contac t Referred To Contact Diagnoses Musculoskeletal disorder of neck Procedures CONSULT TO MASSAGE THERAPY OFFICE/OUTPATIENT [facility] 60-74 MINUTES Carito Reddy APRN.FOLDING MACHINE OPERATOR [address] [place] [address] Referral ID Status Reason Start Date Expiration Date Visits Requested Visits Authorized [id number] Pending Review PCP Requested Referral 05/11/2022 05/11/2023 1 1 [facility] Advance Directives No Advanced Directives Records FoundDocuments on File Type Date Recorded 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 Layer Expl 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 Advance Directive(s) 12/17/2015 10:07 AM Advance Directive(s) 12/13/2015 10:46 AM Summary Purpose Family History No Family History Records Found Additional Source Comments Source Comments (unrecognize d section and content) In the event this informatio n is protected by the Federal Confidentiality of Alcohol and Drug Abuse Patient Records regulations: The Federal rules restrict any use of the information to criminally investigate or prosecute any alcohol or drug abuse patient.[facility] the event this information is protected by the Federal Confidentiality of Alcohol and Drug Abuse Patient Records regulations: The Federal rules restrict any use of the information to criminally investigate or prosecute any alcohol or drug abuse patient.[facility] the event this information is protected by the Federal Confidentiality of Alcohol and Drug Abuse Patient Records regulations: The Federal rules restrict any use of the information to criminally investigate or prosecute any alcohol or drug abuse patient.[facility] the event this information is protected by the Federal Confidentiality of Alcohol and Drug Abuse Patient Records regulations: The Federal rules restrict any use of the information to criminally investigate or prosecute any alcohol or drug abuse patient.[facility] the event this information is protected by the Federal Confidentiality of Alcohol and Drug Abuse Patient Records regulations: The Federal rules restrict any use of the information to criminally investigate or prosecute any alcohol or drug abuse patient.[facility] the event this information is protected by the Federal Confidentiality of Alcohol and Drug Abuse Patient Records regulations: The Federal rules restrict any use of the information to criminally investigate or prosecute any alcohol or drug abuse patient.[facility] the event this information is protected by the Federal Confidentiality of Alcohol and Drug Abuse Patient Records regulations: The Federal rules restrict any use of the information to criminally investigate or prosecute any alcohol or drug abuse patient.[facility] the event this information is protected by the Federal Confidentiality of Alcohol and Drug Abuse Patient Records regulations: The Federal rules restrict any use of the information to criminally investigate or prosecute any alcohol or drug abuse patient.[facility] Reason for Visit (unrecogniz ed section and content) Reason Comments Patient Update Reason Comments Sinus Problem headaches, cough x 1 0 days Reason Comments Neck Pain Reason Comments Results Reason Comments Sinus Problem Cough, drainage, pre ssure x 1 week Reason Onset Date Comments Refill Request 06/16/2022 Reason Comments Results Disc/Report Care Teams (unrecognized sec tion and content) 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 Start Date End Date Maryellen De Leon MD [address] [place] [address] PCP - General Family [facility] 03/29/18 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 Start Date End Date Maryellen De Leon MD [address] [place] [phone] PCP - General Family [facility] 03/29/18 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 Start Date End Date Maryellen De Leon MD [address] [place] [id number] PCP - General Family [facility] 03/29/18 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 Start Date End Date Maryellen De Leon MD [address] [place] [phone] PCP - General Family [facility] 03/29/18 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 This clinical summary was aggregated from multiple sources. Caution should be exercised in using it in the provision of clinical care. This summary normalizes information from multiple sources, and as a consequence, information in this document may materially change the coding, format and clinical context of patient data. In addition, data may be omitted in some cases. CLINICAL DECISIONS SHOULD BE BASED ON THE PRIMARY CLINICAL RECORDS. [facility]. provides no warranty or guarantee of the accuracy or completeness of information in this document.
== END | disposition home or self-care (01) ==
PROVIDERS: PCP Family Medicine; Referring Provider Otolaryngology; Visit Provider Otolaryngology
DX: R05.9 Cough, unspecified (principal)
CPT/HCPCS: 71046

== ENCOUNTER 2023-08-02 20:24 | Emergency (ER) | payer BC, SELFPAY ==
[2023-08-02 20:24] VITALS: BP 121/80; PULSE 71; RESP 16; TEMP 36.3; O2SAT 99
[2023-08-02 20:25] VITALS: BP 121/80; PULSE 71; RESP 16; TEMP 36.3; O2SAT 99; BMI 20.1
--- NOTE | 2023-08-02 20:28 | RAD_ITS ---
EXAM: XR RIGHT ANKLE COMPLETE, 3 OR MORE VIEWS CLINICAL INDICATION: INJURY TECHNIQUE: Frontal, lateral and oblique views of the right ankle. COMPARISON: No relevant prior studies available. FINDINGS: BONES/JOINTS: There is a linear density in the inferior aspect of the fibula possibly representing a tiny avulsion fracture.. Preservation of the joint space. SOFT TISSUES: There is soft tissue swelling over the lateral malleolus. No radiopaque foreign body. RAD/Ankle min 3 Views IMPRESSION: Small linear density inferior to the fibula which may represent a tiny avulsion fracture. There is overlying soft tissue swelling on the lateral ankle. Electronically Signed: Eduar Paige MD at 21:04 EDT ,
--- NOTE | 2023-08-02 22:22 | ED.VIS.LOWEX ---
HPI History of Present Illness Chief Complaint: Lower Extremity Injury Narrative Narrative: 53-year-old female presenting with right ankle pain. She states she strained earlier today. She states she rolled it. Patient able to ambulate both on scene and in the emergency room. She is not required any crutches. No numbness or tingling. No foot pain. No calf pain. No pain at the knee. PFSH PFS Medical History Anxiety Depression Home Medications escitalopram oxalate 10 mg tablet (Lexapro) 10 mg PO QDAY 06/21/17 [History Last Taken Unknown] Allergy/AdvReac Type Severity Reaction Status Date / Time No Known Allergies Allergy Verified 08/02/23 20:27 Family History Father Cancer Prostate Surgical History Hx of exploratory laparotomy (~2015) Social History household members: significant other housing: house number of children: 0 current occupational status: employed current occupation: [employer] pets and animals: Yes Smoking Status: Former smoker second hand exposure: No alcohol intake: never substance use type: does not use what type of physical activity do you participate in: walking frequency: daily duration: 30-45 minutes/day seatbelt use: always do you feel safe at home: Yes additional social history: Boyfriend- Dutch NIC LUCERO ED Constitutional Constitutional ED: Denies chills, fever(s) or sweats Eyes Eyes: Denies blurry vision or change in vision ENT ENT ED: Denies ear pain or sore throat Cardiovascular Cardiovascular: Denies chest pain, palpitations or racing heartbeat Respiratory/Chest Respiratory/Chest: Denies cough, dyspnea or sputum Gastrointestinal Gastrointestinal: Denies abdominal pain, constipation, diarrhea, nausea or vomiting Genitourinary Genitourinary ED: Denies dysuria, hematuria or urinary frequency Musculoskeletal Musculoskeletal: Reports other Details: Right ankle pain ; Denies arthralgias, myalgias or neck pain Integumentary Denies abscess, Abrasions or rash Neurologic Neurologic: Denies headache(s), paresthesias or weakness Psychiatric Psychiatric: Denies anxiety, depression, suicidal ideation or suicidal thoughts Endocrine Endocrinology: Denies polydipsia or polyuria EXAM Physical Exam Const Vital Signs: 08/02/23 20:24 08/02/23 20:25 Temperature 97.3 F L 97.3 F L Temperature Source Temporal Temporal Pulse Rate 71 71 Respiratory Rate 16 16 Blood Pressure 121/80 H 121/80 H Blood Pressure Mean 93 93 Pulse Ox 99 99 Oxygen Delivery Method Room Air Room Air Positive well nourished General Appearance ED: NAD HEENT Reports moist mucous membranes Chest Wall inspection of chest normal Resp normal respiratory effort Cardio regular rate and regular rhythm Extremity Extremity Narrative: Tenderness palpation of the right lateral malleolus. No pain at the right medial malleolus. No pain at the navicular. No pain at the base of fifth metatarsal on right foot. 2+ pedal pulses. Prescription for all the toes. No deformity Neuro oriented x3 Sensorium / Orientation: alert Motor Exam: strength 5/5 throughout Psych mental status grossly normal Skin no wounds MDM MDM MDM Narrative Medical decision making narrative: Patient presenting with right ankle pain. I do not see any acute fractures although the radiologist interprets this is a possible small avulsion fracture. I do believe the patient has an ankle sprain I will treat her with an Aircast, Darius wrap, crutches. I will have him follow-up with podiatry. Tylenol and ibuprofen for pain. Return precautions discussed. Impression 1. Right ankle sprain Lab Data Attestation: I reviewed the patient's lab results. Radiography Diagnostic Testing: Clinical Impression(s) from Imaging Studies Ankle X-Ray 08/02/23 20:28 IMPRESSION: Small linear density inferior to the fibula which may represent a tiny avulsion fracture. There is overlying soft tissue swelling on the lateral ankle. Electronically Signed: Eduar Paige MD at 21:04 EDT , Discharge Plan Triage Chief Complaint: Lower Extremity Injury ED Provider: Shoaib Hurd Dx/Rx/DC Orders Instructions: ED Ankle Sprain (Adult) Prescriptions: No Action escitalopram oxalate [Lexapro] 10 mg tablet 10 mg PO QDAY Primary Care Provider: Wilber Henriquez Referrals: Wilber Henriquez MD [Primary Care Provider] - Michael Diop DPM [Med Staff - Active Staff] - As soon as possible Disposition Disposition: Home, Self Care
== END 2023-08-02 23:05 | disposition home or self-care (01) ==
PROVIDERS: Emergency Provider Student in an Organized Health Care Education/Training Program; PCP Family Medicine; Visit Provider Student in an Organized Health Care Education/Training Program
DX: S93.401A Sprain of unspecified ligament of right ankle, initial encounter (principal); Z87.891 Personal history of nicotine dependence; X58.XXXA Exposure to other specified factors, initial encounter; F41.9 Anxiety disorder, unspecified; F32.A Depression, unspecified; Z79.899 Other long term (current) drug therapy
CPT/HCPCS: 73610; 99284

== ENCOUNTER 2023-11-21 09:51 | Emergency (ER) | payer BC, SELFPAY ==
[2023-11-21 09:52] VITALS: BP 126/83; PULSE 69; RESP 18; TEMP 36.8; O2SAT 100
[2023-11-21 09:55] VITALS: BMI 20.6
--- NOTE | 2023-11-21 10:05 | VDLE_ITS ---
Reason For Study: Right leg pain RIGHT LEFT GSV is normal. CFV is compressible, spontaneous, phasic, CFV is compressible, spontaneous, phasic, competent, and demonstrates normal competent and demonstrates normal augmentation. augmentation. FV is compressible, spontaneous, phasic, competent and demonstrates normal augmentation. POP V is compressible, spontaneous, phasic, competent and demonstrates normal augmentation. T/P Trunk is compressible. PTV is compressible. RT PerV is compressible. Procedure This is a venous duplex using B-mode, color flow and spectral Doppler. Exam performed portable in ED. A preliminary report was called and/or faxed to Elise ENGLAND. VL/Venous Duplex US, Unilateral Interpretation Summary There is no evidence of right lower extremity deep vein thrombosis. Right great saphenous vein appears patent and compressible segmentally. Normal flow patterns left common f emoral vein Ordering Physician: Shoaib Hurd Referring Physician: Wilber Henriquez Performed By: Elise Howell RVT
--- NOTE | 2023-11-21 10:07 | ED.VIS.LOWEX ---
HPI History of Present Illness Chief Complaint: Edema Narrative Narrative: 53-year-old female presenting with right lower extremity pain. She states that her right tibial region distally. It radiates into the right anterior ankle. Patient states she broke her ankle in July. She states she had to be in a walking boot for few weeks. She states it is healing well. Patient states she noted that her leg was hurting a couple of days ago. She was seen by urgent care and was sent to the ER to rule out DVT. PFSH PFS Medical History Depression Anxiety Home Medications ?Medication ?Instructions ?Recorded ?Last Taken ?Type escitalopram oxalate 10 mg tablet 10 mg PO QDAY 06/21/17 Unknown History (Lexapro) Allergy/AdvReac Type Severity Reaction Status Date / Time No Known Allergies Allergy Verified 08/02/23 20:27 Family History Father Cancer Prostate Surgical History Hx of exploratory laparotomy (~2015) Social History household members: significant other housing: house number of children: 0 current occupational status: employed current occupation: [employer] pets and animals: Yes Smoking Status: Former smoker second hand exposure: No alcohol intake: never substance use type: does not use what type of physical activity do you participate in: walking frequency: daily duration: 30-45 minutes/day seatbelt use: always do you feel safe at home: Yes additional social history: Boyfriend- Dutch LUCERO ED Constitutional Constitutional ED: Denies chills, fever(s) or sweats Eyes Eyes: Denies blurry vision or change in vision ENT ENT ED: Denies ear pain or sore throat Cardiovascular Cardiovascular: Denies chest pain, palpitations or racing heartbeat Respiratory/Chest Respiratory/Chest: Denies cough, dyspnea or sputum Gastrointestinal Gastrointestinal: Denies abdominal pain, constipation, diarrhea, nausea or vomiting Genitourinary Genitourinary ED: Denies dysuria, hematuria or urinary frequency Musculoskeletal Musculoskeletal: Reports other Details: Right ankle pain right tibial pain ; Denies arthralgias, myalgias or neck pain Integumentary Denies abscess, Abrasions or rash Neurologic Neurologic: Denies headache(s), paresthesias or weakness Psychiatric Psychiatric: Denies anxiety, depression, suicidal ideation or suicidal thoughts Endocrine Endocrinology: Denies polydipsia or polyuria EXAM Physical Exam Const Vital Signs: 11/21/23 09:52 11/21/23 10:04 Temperature 98.2 F Temperature Source Temporal Pulse Rate 69 Respiratory Rate 18 Respiratory Effort Normal Non-Labored Respiratory Pattern Normal Blood Pressure 126/83 H Blood Pressure Mean 97 Pulse Ox 100 Oxygen Delivery Method Room Air Positive well nourished General Appearance ED: NAD HEENT Reports moist mucous membranes Eyes PERRL Resp normal respiratory effort Cardio regular rate and regular rhythm Extremity Extremity Narrative: Tenderness to palpation over the distal tibia midline anteriorly. No calf tenderness. No swelling. Right foot neurovascular intact brisk cap refill to all 5 toes. Neuro oriented x3 and CN's II-XII intact bilaterally Sensorium / Orientation: alert Motor Exam: strength 5/5 throughout Psych mental status grossly normal Skin no wounds MDM MDM MDM Narrative Medical decision making narrative: Patient presenting with right lower extremity pain. She states in her right anterior tibia and ankle. Denies any trauma. Recent history in July of avulsion fracture. She was in a walking boot. Sent to the ER to rule out DVT. Duplex of the right lower extremity negative for DVT. Patient counseled on findings. She is discharged stable condition. Impression: 1. Right leg pain Discharge Plan Triage Chief Complaint: Edema ED Provider: Shoaib Hurd Dx/Rx/DC Orders Instructions: ED Peripheral Edema, Unilateral Prescriptions: No Action escitalopram oxalate [Lexapro] 10 mg tablet 10 mg PO QDAY Primary Care Provider: Wilber Henriquez Referrals: Wilber Henriquez MD [Primary Care Provider] - Print Language: Thai Disposition Disposition: Home, Self Care
[2023-11-21 11:00] VITALS: BP 120/76; PULSE 64; RESP 16; TEMP 36.7; O2SAT 100
== END 2023-11-21 11:21 | disposition home or self-care (01) ==
PROVIDERS: Emergency Provider Student in an Organized Health Care Education/Training Program; PCP Family Medicine; Visit Provider Student in an Organized Health Care Education/Training Program
DX: M79.604 Pain in right leg (principal); Z87.891 Personal history of nicotine dependence; R60.9 Edema, unspecified; F32.A Depression, unspecified; F41.9 Anxiety disorder, unspecified
CPT/HCPCS: 93971; 99282

== ENCOUNTER → 2024-07-11 | Outpatient (CLI) | payer BC, SELFPAY ==
--- NOTE | 2024-07-11 18:50 | CT_ITS ---
PROCEDURE: Noncontrast CT of the paranasal sinuses. REASON FOR EXAM: Chronic sinusitis TECHNIQUE: Contiguous unenhanced axial CT images were obtained through the paranasal sinuses. Sagittal and coronal reformats were created. One or more dose reduction techniques were used (e.g., Automated exposure control, adjustment of the mA and/or kV according to patient size, use of iterative reconstruction technique). RADIATION DOSE SUMMARY: DLP: 759.47 mGycm COMPARISON: None. FINDINGS: Streak artifact from dental amalgam. Included portions of the brain are grossly unremarkable. Extracranial soft tissues show no specific abnormality. The orbits and globes, as well as the included mucosal surfaces of the pharynx/larynx show no specific abnormality. Soft tissues of the upper neck grossly unremarkable. Mastoid air cells and middle ears are clear. The anterior nasal septum bows gently to the right. There is some wispy mild partial opacification of the right sphenoid sinus. Minimal partial opacification of the inferior maxillary sinuses, greatest on the left. There are no paranasal sinus air-fluid levels. Frontal and ethmoid air cells are clear. Ostiomeatal complexes are clear. There is a tiny right bony septal spur which slightly contacts and minimally deforms the inferior right nasal turbinate. CT/Sinus/Facial Bone IMPRESSION: Mild paranasal sinus disease as above, involving the maxillary sinuses (greates t on the left), and the right sphenoid sinus. No paranasal sinus air-fluid levels. Ostiomeatal complexes are patent. Mild rightward bowing anterior nasal septum. Reading Location: [place]
== END | disposition home or self-care (01) ==
PROVIDERS: PCP Family Medicine; Referring Provider Otolaryngology; Visit Provider Otolaryngology
DX: J32.8 Other chronic sinusitis (principal)
CPT/HCPCS: 70486